=== PATIENT | male | born 1965 | race Caucasian/White ===

== ENCOUNTER 2018-12-12 16:25 | Emergency (ER) | payer MEDICARE, MEDICAID, SELFPAY ==
[2018-12-12 16:30] VITALS: BP 125/70; PULSE 79; RESP 17; TEMP 36.8; O2SAT 98; BMI 24.3
--- NOTE | 2018-12-12 16:33 | DI.RAD.S_ITS ---
PROCEDURE: XR KNEE RT 3V INDICATIONS: right knee pain,felt a pop TECHNIQUE: 3 views of the knee were acquired. COMPARISON: None. FINDINGS: Bones: No fractures or dislocations. No suspicious bony lesions. Soft tissues: No joint effusion. No suspicious soft tissue calcifications. IMPRESSION: No fracture or dislocation. Dictated by: Lee Corral M.D. on 12/12/2018 at 16:52 Approved by: Lee Corral M.D. on 12/12/2018 at 16:53
--- NOTE | 2018-12-12 16:56 | ED_ITS ---
HPI - Extremity Injury (Lower) General Chief Complaint: Extremity Injury, Lower Stated Complaint: Right leg injury Time Seen by Provider: 12/12/18 16:56 Source: patient Mode of arrival: ambulatory Limitations: no limitations History of Present Illness HPI Narrative: Patient is a 53-year-old male here for evaluation of right knee injury. Patient states that earlier today he tried to avoid stepping on his dogs and he came down on a flatfoot with his knee slightly bent. He states that he heard a ?pop? since then has had pain on the inside of his right knee. Has been ambulatory but with quite a bit of discomfort. Related Data Home Medications Medication Instructions Recorded Confirmed hydromorphone 4 mg PO DAILY 12/12/18 methocarbamol 500 mg PO TID 12/12/18 12/12/18 Allergies Allergy/AdvReac Type Severity Reaction Status Date / Time No Known Drug Allergies Allergy Unknown Verified 12/12/18 16:30 morphine [MORPHINE] AdvReac Mild I DON'T Verified 12/12/18 16:30 SLEEP pineapple [PINEAPPLE] AdvReac Mild MAKES ME Verified 12/12/18 16:30 BLEED Review of Systems Constitutional Denies headache(s) ENT Ears, Nose, Mouth, and Throat: Denies headache(s) Cardiovascular Denies chest pain Respiratory Denies cough Gastrointestinal Gastrointestinal: Denies abdominal pain Genitourinary Denies dysuria Musculoskeletal Denies myalgias, Reports arthralgias (Right knee) and Denies joint swelling Integumentary/Breasts Denies lesions and Denies rash Neurologic Denies headache(s) Hematologic/Lymphatic Denies easy bleeding and Denies easy bruising [facility] Medical History Arthritis (Acute) Social History Smoking Status: Current every day smoker Social History Smoking Status: Current every day smoker Exam Initial Vital Signs Initial Vital Signs: Vital Signs Temperature 98.3 F 12/12/18 16:30 Pulse Rate 79 12/12/18 16:30 Respiratory Rate 17 12/12/18 16:30 Blood Pressure 125/70 12/12/18 16:30 Pulse Oximetry 98 12/12/18 16:30 Const General: cooperative, comfortable, well developed, well groomed and No acute distress Orientation: alert, awake and oriented x3 Resp Effort & Inspection: normal respiratory effort Cardio Rate: regular rate Skin Lesions: no lesions Rashes: no rashes Neuro General: alert, awake and oriented x3 Cognition: normal cognition Extrem Other: Patient able to straight leg raise. He is tender to palpation along bilateral hamstrings. Is also tender to palpation along the medial joint line. ACL PCL MCL and LCL are all intact functional testing. Psych Appearance: grossly normal and well kempt Course Orders Ordered: ED Orders 12/12/18 16:33 XR knee RT 3V Stat Vital Signs - 8 hr 12/12/18 16:30 Temperature 98.3 F Pulse Rate 79 Respiratory Rate 17 Blood Pressure 125/70 Pulse Oximetry 98 MDM - Extremity Injury (Lower) Imaging Data Knee x-ray: Radiologist's impression: [address] [address] XRay Report Signed Patient: El Kebede LMR#: [id number] : 1965Acct:[id number] Age/Sex: 53 / MDate of Service: 12/12/18 Loc: ED Accession Number: [id number] Procedure: XR knee RT 3V Ordering Provider: Mario Mullins D.O. PROCEDURE: XR KNEE RT 3V INDICATIONS: right knee pain,felt a pop TECHNIQUE: 3 views of the knee were acquired. COMPARISON: None. FINDINGS: Bones: No fractures or dislocations. No suspicious bony lesions. Soft tissues: No joint effusion. No suspicious soft tissue calcifications. IMPRESSION: No fracture or dislocation. Dictated by: Lee Corral M.D. on 12/12/2018 at 16:52 Approved by: Lee Corral M.D. on 12/12/2018 at 16:53 [facility] Narrative Medical decision making narrative: Patient is neurovascular intact. X-rays negative for fracture. Patient could potentially have a medial meniscus injury or an MCL strain. He is also tender along the hamstrings. Patient has crutches at home. He also has a knee brace at home. Patient also has pain medication at home. Will hold on further workup for now. He expressed understanding and agreement with plan. Discharge Plan Departure Patient Disposition: Home Clinical Impression: Strain of right knee Qualifiers: Encounter type: initial encounter Qualified Code(s): S86.911A - Strain of unspecified muscle(s) and tendon(s) at lower leg level, right leg, initial encounter Discharge Date/Time: 12/12/18 17:10 Interventions: ED Discharge Assessment Last Done: 12/12/18 17:09 Instructions: DI for Knee Pain Activity Restrictions/Additional Instructions: You can use the crutches and a knee brace you have at home as needed for d iscomfort. Use your pain medication you have at home as needed and as directed. Contact her primary care doctor for follow-up. Return to the emergency department for any new or worsening symptoms Prescriptions: No Action methocarbamol 500 mg tablet 500 mg PO TID RF: 0 hydromorphone 4 mg tablet 4 mg PO DAILY RF: 0 Referrals: Bhumika Jiang PA-C [Primary Care Provider] -
== END 2018-12-12 17:10 | disposition home or self-care (01) ==
PROVIDERS: Emergency Provider Emergency Medicine; Family Provider Physician Assistant; PCP Physician Assistant
DX: S86.911A Strain of unspecified muscle(s) and tendon(s) at lower leg level, right leg, initial encounter (principal)
CPT/HCPCS: 73562; 99282; 99283

== ENCOUNTER 2021-11-19 14:29 | Emergency (ER) | payer MEDICARE, MEDICAID, SELFPAY ==
[2021-11-19 15:20] VITALS: BP 123/57; PULSE 76; RESP 18; TEMP 36.3; O2SAT 98; BMI 24.3
--- NOTE | 2021-11-19 15:23 | DI.RAD.S_ITS ---
PROCEDURE: XR CHEST 2V INDICATIONS: Coughing up blood concerns of pneumonia TECHNIQUE: 2 views of the chest were acquired. COMPARISON: [facility], , CHEST 2 VIEW, 09/05/2016, 13:33. FINDINGS: Surgical changes and devices: None. Lungs and pleura: Lungs are clear. No pleural effusions or pneumothorax. Bolus pulmonary emphysema noted particularly at the right lung apex with scarring. Mediastinum: Mediastinal contours are normal. Heart size is normal. Bones and chest wall: No suspicious bony abnormalities. Soft tissues appear unremarkable. IMPRESSION: Right upper lobe cavitary lesion may reflect bullous emphysema, stable from the prior. No focal infiltrate. Approved by: Ethan Swanson M.D. on 11/19/2021 at 16:14
[2021-11-19 17:09] VITALS: BP 111/68; PULSE 58; O2SAT 100
[2021-11-19 17:22] LABS: Add Manual Diff / Slide Review NO; Basophils Absolute Auto 100 /uL (0-100); Basophils Percent Auto 1.5 % (0-2); Eosinophils Absolute Auto 100 /uL (0-450); Eosinophils Percent Auto 0.9 % (2-4); Lymphocytes Absolute Auto 2200 /uL (1100-4500); Lymphocytes Percent Auto 25.3 % (25-40); Mean Corpuscular HGB Conc 34.2 % (30-36); Mean Corpuscular Hemoglobin 29.1 PG (26-34); Mean Corpuscular Volume 85.3 fL (80-100); Monocytes Absolute Auto 800 /uL (0-900); Monocytes Percent Auto 8.6 % (3-14); Neutrophils Absolute Auto 5500 /uL (1500-7000); Neutrophils Percent Auto 63.7 % (50-75); Platelet Count 227 X10^3/uL (150-400); Red Blood Cell Count 5.16 X10^6/uL (4.5-5.9); Red Cell Distribution Width 13.9 % (11.6-14.8); White Blood Cell Count 8.7 X10^3/uL (4.5-11.0)
[2021-11-19 17:30] VITALS: BP 112/66; PULSE 60; O2SAT 99
[2021-11-19 17:37] LABS: D Dimer < 200 ng/mL (<230)
[2021-11-19 17:40] LABS: Alanine Aminotransferase 21 IU/L (<50); Albumin 4.3 g/dL (3.5-5.0); Albumin Globulin Ratio 1.5 (1.0-2.8); Alkaline Phosphatase 82 U/L (38-126); Aspartate Aminotransferase 23 IU/L (17-59); BUN Creatinine Ratio 16.9 (6-22); Bilirubin Total 0.5 mg/dL (0.2-1.3); Blood Urea Nitrogen 12 mg/dL (9-20); Carbon Dioxide 28 mmol/L (22-32); Chloride 104 mmol/L (98-107); Creatine Kinase 109 U/L (55-170); Estimated Glomerular Filt Rate > 60 mL/min (>60); Globulin 2.9 g/dL (1.7-4.1); Glucose 92 mg/dL (70-100); HEMOLYSIS < 15 (0-50); Lipase 211 U/L (23-300); Potassium 4.2 mmol/L (3.4-5.1); Sodium 138 mmol/L (137-145); Total Protein 7.2 g/dL (6.3-8.2)
[2021-11-19 17:51] LABS: Troponin I < 0.012 ng/mL (0.01-0.034)
[2021-11-19 17:55] LABS: Creatine Kinase MB 1.08 ng/mL (<2.37)
[2021-11-19 17:56] LABS: Procalcitonin 0.05 ng/mL (<0.5)
[2021-11-19 18:00] VITALS: BP 116/70; PULSE 62; O2SAT 98
--- NOTE | 2021-11-19 18:29 | ED.URI ---
HPI - URI/Sore Throat General Chief Complaint: Upper Respiratory Symptoms Stated Complaint: coughing blood x 3 days Time Seen by Provider: 11/19/21 15:25 History of Present Illness HPI Narrative: 56-year-old male of pancreatitis, bacterial pneumonia and abnormal chest x-ray findings in the past consistent with a cavitary lesion that is not per kilos S presents with a chief complaint of 3 days of hemoptysis and cough. He states there have been both small amounts of bright red and occasionally dark red blood. He denies any fever or chills. He is not dizzy nor weak or lightheaded. He denies nausea or vomiting. He denies any abdominal pain. Related Data Home Medications Medication Instructions Recorded Confirmed hydromorphone 4 mg tablet 4 mg PO DAILY 12/12/18 methocarbamol 500 mg tablet 500 mg PO TID 12/12/18 12/12/18 Previous Rx's Medication Instructions Recorded doxycycline hyclate 100 mg tablet 100 mg PO BID #20 tab 11/19/21 Allergies Allergy/AdvReac Type Severity Reaction Status Date / Time No Known Drug Allergies Allergy Unknown Verified 11/19/21 15:22 morphine [MORPHINE] AdvReac Mild I DON'T Verified 11/19/21 15:22 SLEEP pineapple [PINEAPPLE] AdvReac Mild MAKES ME Verified 11/19/21 15:22 BLEED Review of Systems Review of Systems Narrative: GENERAL: Denies chills, fatigue, malaise, fever, sweats. HEENT: Denies sinus pain, ear pain, sore throat, difficulty swallowing, dizziness. RESPIRATORY: See HPI. CARDIOVASCULAR: Denies chest pain, palpitations, orthopnea, edema, GASTROINTESTINAL: Denies nausea, vomiting, abdominal pain, diarrhea, constipation, melena. : Denies dysuria, frequency, incontinence, hematuria, urinary retention. MUSCULOSKELETAL: denies weakness, joint pain, or bony pain SKIN: Denies rash, skin lesions, or other NEUROLOGIC: Denies weakness, headache, numbness, change in speech, confusion, seizures, incoordination. PSYCHIATRIC: No concerning psychosocial issues. 12 point review of systems is negative except for those stated above Patient History Medical History (Updated 11/19/21 @ 19:21 by Chad Woodson DO) Arthritis Social History Smoking Status: Current every day smoker Smoking Status: Current every day smoker alcohol intake frequency: holidays/special occasions only Substance Use Type: marijuana Exam Narrative Exam Narrative: GENERAL: [56] year old patient appears stated age. Well-developed patient, in mild distress. HEAD: Atraumatic. Normocephalic. EYES: Pupils equal round and reactive. Extraocular motions intact. No scleral icterus. No injection or drainage. ENT: Nose without bleeding, purulent drainage. Throat without erythema, tonsillar hypertrophy or exudate. Airway patent. NECK: Trachea midline. Non tender CARDIOVASCULAR: Regular rate and rhythm without murmurs, gallops, or rubs. RESPIRATORY: Clear to auscultation. Breath sounds equal bilaterally. No wheezes, rales, or rhonchi. GASTROINTESTINAL: Abdomen soft, non-tender, nondistended. EXTREMITIES: No edema or joint tenderness. BACK: Nontender without deformity or crepitance. No flank tenderness. NEURO: AOx3. SKIN: No rash or erythema of visible areas Initial Vital Signs Initial Vital Signs: Vital Signs Temperature 97.4 F L 11/19/21 15:20 Pulse Rate 76 11/19/21 15:20 Respiratory Rate 18 11/19/21 15:20 Blood Pressure 123/57 L 11/19/21 15:20 Pulse Oximetry 98 11/19/21 15:20 Course Orders Ordered: ED Orders 11/19/21 15:23 XR chest 2V Stat 11/19/21 15:26 EKG-12 Lead Stat 11/19/21 17:05 Complete Blood Count AUTO DIFF Stat Comprehensive Metabolic Panel Stat D Dimer Stat Lipase Stat Procalcitonin Stat Troponin & CK Cardiac Panel Stat 11/19/21 18:41 CT chest w con Stat Discontinued Medications Albuterol (Albuterol Hfa Prepack) 1 box MISC SEEINSTR ONE Stop: 11/19/21 19:20 Vital Signs Vital signs: Vital Signs - 8 hr 11/19/21 15:20 Temperature 97.4 F L Pulse Rate 76 Respiratory Rate 18 Blood Pressure 123/57 L Pulse Oximetry 98 MDM - URI/Sore Throat Lab Data Result diagrams: 11/19/21 17:05 11/19/21 17:05 Labs: Lab Results 11/19/21 11/19/21 11/19/21 Range/Units 17:05 17:05 17:05 WBC 8.7 (4.5-11.0) X10^3/uL RBC 5.16 (4.5-5.9) X10^6/uL Hgb 15.0 (13.5-17.5) g/dL Hct 44.0 (41-53) % MCV 85.3 (80-100) fL MCH 29.1 (26-34) PG MCHC 34.2 (30-36) % RDW 13.9 (11.6-14.8) % Plt Count 227 (150-400) X10^3/uL Neut % (Auto) 63.7 (50-75) % Lymph % (Auto) 25.3 (25-40) % [place] % (Auto) 8.6 (3-14) % Eos % (Auto) 0.9 L (2-4) % Baso % (Auto) 1.5 (0-2) % Neut # (Auto) 5500 (5627-3902) /uL Lymph # (Auto) 2200 (9749-2256) /uL [place] # (Auto) 800 (0-900) /uL Eos # (Auto) 100 (0-450) /uL Baso # (Auto) 100 (0-100) /uL D-Dimer < 200 (<230) ng/mL Sodium 138 (137-145) mmol/L Potassium 4.2 (3.4-5.1) mmol/L Chloride 104 (98-107) mmol/L Carbon Dioxide 28 (22-32) mmol/L BUN 12 (9-20) mg/dL Creatinine 0.71 (0.66-1.25) mg/dL Estimated GFR > 60 (>60) mL/min BUN/Creatinine Ratio 16.9 (6-22) Glucose 92 (70-100) mg/dL Calcium 9.0 (8.4-10.2) mg/dL Total Bilirubin 0.5 (0.2-1.3) mg/dL AST 23 (17-59) IU/L ALT 21 (<50) IU/L Alkaline Phosphatase 82 (38-126) U/L Total Creatine Kinase 109 (55-170) U/L CK-MB (CK-2) 1.08 (<2.37) ng/mL CK-MB (CK-2) Rel Index 1.0 L (1.5-5.0) % Troponin I < 0.012 (0.01-0.034) ng/mL Total Protein 7.2 (6.3-8.2) g/dL Albumin 4.3 (3.5-5.0) g/dL Globulin 2.9 (1.7-4.1) g/dL Albumin/Globulin Ratio 1.5 (1.0-2.8) Lipase 211 (23-300) U/L Procalcitonin 0.05 (<0.5) ng/mL Imaging Data Chest x-ray: Radiologist's Impression: Launch?Image [address] [address] XRay Report Signed Patient: El Kebede Jr MR#: [id number] : 1965 Acct:[id number] Age/Sex: 56 / M Date of Service: 11/19/21 Loc: ED Accession Number: [id number] ?? Procedure: XR chest 2V Ordering Provider: Lisa Lora D.O. PROCEDURE:? XR CHEST 2V ? INDICATIONS:? Coughing up blood concerns of pneumonia ? TECHNIQUE:? 2 views of the chest were acquired.? ? COMPARISON:? [facility], , CHEST 2 VIEW, 09/05/2016, 13:33. ? FINDINGS:? ? Surgical changes and devices:? None.? ? Lungs and pleura:? Lungs are clear.? No pleural effusions or pneumothorax.? Bolus pulmonary emphysema noted particularly at the right lung apex with scarring. ? Mediastinum:? Mediastinal contours are normal.? Heart size is normal.? ? Bones and chest wall:? No suspicious bony abnormalities.? Soft tissues appear unremarkable.? ? IMPRESSION:? ? Right upper lobe cavitary lesion may reflect bullous emphysema, stable from the prior.? No focal infiltrate. ? ? ? Approved by: Ethan Swanson M.D. on 11/19/2021 at 16:14? CT scan - chest: Radiologist's Impression: [address] [address] [address] Scan Report Signed Patient: El Kebede Jr MR#: [id number] : 1965 Acct:[id number] Age/Sex: 56 / M Date of Service: 11/19/21 Loc: ED Accession Number: [id number] ?? Procedure: CT chest w con Ordering Provider: Chad Woodson D.O. PROCEDURE:? CT CHEST W CON ? INDICATIONS:? hemoptysis ? TECHNIQUE:? After the administration of intravenous contrast, 5 mm thick sections acquired from the pulmonary apices to the posterior costophrenic angles.? 1 mm axial lung, 5 mm thick coronal and sagittal reformats and 7 mm axial MIP were acquired.? For radiation dose reduction, the following was used:? automated exposure control, adjustment of mA and/or kV according to patient size.? ? COMPARISON:? [facility], CT, ANGIOGRAPHY CHEST AND ABDOMEN, 09/05/2016, 14:22. ? FINDINGS:? Image quality:? Excellent.? ? Lungs and pleura:? Advanced biapical centrilobular emphysema, as before.? No significant change in large left apical mass, previously measuring 2.6 x 1.9 cm in currently measuring 2.7 x 1.9 cm.? Stable or slightly smaller right a pickle mass on previous image 22/6 it measured 3.0 x 1.6 cm.? On current image 80/3 it measures 2.7 x 1.7 cm.? On previous image 21/6 it measured 3.1 x 2.3 cm.? On current image 78/3 it measures 3.1 x 1.9 cm.? These are consistent with chronic granulomatous disease.? Numerous small right upper lobe pulmonary nodules are also not significantly changed, allowing for differences in technique.? No acute air space opacities.? No pleural effusions or pneumothorax.? Bilateral upper lung field bronchiectasis and bronchial wall thickening, as before.? No new or increasing pulmonary nodules.? No acute infiltrates.? No evidence of pulmonary parenchymal hemorrhage. ? Mediastinum:? Heart size is normal.? No pericardial effusion.? No mediastinal or hilar adenopathy by size criteria.? Thoracic aorta and central pulmonary arteries are normal in size.? Esophagus is normal in caliber.? No hiatal hernia.? ? Bones and chest wall:? No suspicious bony lesions.? No vertebral body compression fractures.? No axillary or supraclavicular adenopathy by size criteria.? Thyroid gland is unremarkable as imaged .? ? Abdomen:? Numerous low-density liver lesions are stable, and presumed to represent benign cysts versus hemangiomata. ? IMPRESSION:? ? 1. Biapical large masses are unchanged in size or slightly smaller, consistent with chronic granulomatous disease. ? 2. Severe biapical emphysematous change. ? 3. Multiple other small right upper lobe pulmonary nodules are stable. ? 4. Bilateral bronchiectasis and bronchial wall thickening. ? 5. No consolidation to indicate evidence of acute parenchymal hemorrhage.? ? ? Dictated by: Efraín Salazar M.D. on 11/19/2021 at 18:55 ? ? Approved by: Efraín Salazar M.D. on 11/19/2021 at 19:05? MDM Narrative Medical decision making narrative: 56-year-old male with reassuring physical exam, labs and imaging. He reports hacking cough, occasionally productive of sputum and feels similar to prior bouts of pneumonia. He does not take any blood thinners. Multiple diagnoses considered including massive hemoptysis cough thought unlikely given history and physical. Pulmonary embolism thought unlikely given negative D-dimer. No obvious lung masses or acute change to suggest airway infiltration or even focal consolidation. Given his history of smoking, ongoing cough with productive sputum and now hemoptysis will treat with antibiotics for atypical pneumonia, will be given return precautions Discharge Plan Departure Patient Disposition: Home Clinical Impression: Atypical pneumonia Instructions: DI for Atypical Pneumonia Activity Restrictions/Additional Instructions: *You have been diagnosed with [mild hemoptysis likely due to atypical pneumonia. As we discussed your history and physical exam are reassuring as is the blood work and imaging. There is no evidence of a large pneumonia, blood clot, lung cancer or other serious diagnosis that would require a specific intervention *What to do: *Please continue to take your regular medications as directed. [x ] New medication prescriptions sent to your pharmacy: [[facility] ] [ ] New medication written as a paper prescription [ ] No new medications given *Please follow up with your primary care provider in 2-3 days, call for an appointment. Let them know you were seen in the Emergency Department and that we ask that you be seen in follow up. We will electronically transmit a record of today's note if your PCP is in our system *If you do not have a primary care provider please contact the [facility] Resource line at [phone]. They will ask some questions about your medical history and help get you set up with a doctor in the community. *Return to Emergency Department if you should have any new, worsening or concerning symptoms, such as [fever greater than 101 F, shaking chills, worsening pain, persistent vomiting or other bothersome symptoms] Prescriptions: New doxycycline hyclate 100 mg tablet 100 mg PO BID Qty: 20 0RF No Action methocarbamol 500 mg tablet 500 mg PO TID 0RF hydromorphone 4 mg tablet 4 mg PO DAILY 0RF Referrals: Bhumika Jiang PA-C [Primary Care Provider] -
--- NOTE | 2021-11-19 18:41 | DI.CT.S_ITS ---
PROCEDURE: CT CHEST W CON INDICATIONS: hemoptysis TECHNIQUE: After the administration of intravenous contrast, 5 mm thick sections acquired from the pulmonary apices to the posterior costophrenic angles. 1 mm axial lung, 5 mm thick coronal and sagittal reformats and 7 mm axial MIP were acquired. For radiation dose reduction, the following was used: automated exposure control, adjustment of mA and/or kV according to patient size. COMPARISON: [facility], CT, ANGIOGRAPHY CHEST AND ABDOMEN, 09/05/2016, 14:22. FINDINGS: Image quality: Excellent. Lungs and pleura: Advanced biapical centrilobular emphysema, as before. No significant change in large left apical mass, previously measuring 2.6 x 1.9 cm in currently measuring 2.7 x 1.9 cm. Stable or slightly smaller right a pickle mass on previous image 22/6 it measured 3.0 x 1.6 cm. On current image 80/3 it measures 2.7 x 1.7 cm. On previous image 21/6 it measured 3.1 x 2.3 cm. On current image 78/3 it measures 3.1 x 1.9 cm. These are consistent with chronic granulomatous disease. Numerous small right upper lobe pulmonary nodules are also not significantly changed, allowing for differences in technique. No acute air space opacities. No pleural effusions or pneumothorax. Bilateral upper lung field bronchiectasis and bronchial wall thickening, as before. No new or increasing pulmonary nodules. No acute infiltrates. No evidence of pulmonary parenchymal hemorrhage. Mediastinum: Heart size is normal. No pericardial effusion. No mediastinal or hilar adenopathy by size criteria. Thoracic aorta and central pulmonary arteries are normal in size. Esophagus is normal in caliber. No hiatal hernia. Bones and chest wall: No suspicious bony lesions. No vertebral body compression fractures. No axillary or supraclavicular adenopathy by size criteria. Thyroid gland is unremarkable as imaged . Abdomen: Numerous low-density liver lesions are stable, and presumed to represent benign cysts versus hemangiomata. IMPRESSION: 1. Biapical large masses are unchanged in size or slightly smaller, consistent with chronic granulomatous disease. 2. Severe biapical emphysematous change. 3. Multiple other small right upper lobe pulmonary nodules are stable. 4. Bilateral bronchiectasis and bronchial wall thickening. 5. No consolidation to indicate evidence of acute parenchymal hemorrhage. Dictated by: Efraín Salazar M.D. on 11/19/2021 at 18:55 Approved by: Efraín Salazar M.D. on 11/19/2021 at 19:05
[2021-11-19] MEDS: ALBUTEROL HFA PREPACK 1 BOX MISC (19:23)
== END 2021-11-19 19:29 | disposition home or self-care (01) ==
PROVIDERS: Emergency Medicine; Emergency Provider Emergency Medicine; Family Provider Physician Assistant; PCP Physician Assistant
DX: J18.9 Pneumonia, unspecified organism (principal); R07.89 Other chest pain
CPT/HCPCS: 36415; 71046; 71260; 80053; 82550; 82553; 83690; 84145; 84484; 85025; 85379; 93005; 93010; 99283

== ENCOUNTER 2022-05-21 11:23 | Emergency (ER) | payer MEDICARE, MEDICAID, SELFPAY ==
[2022-05-21 11:31] VITALS: BP 113/63; PULSE 76; RESP 20; TEMP 36.8; O2SAT 99; BMI 22.9
--- NOTE | 2022-05-21 11:31 | DI.RAD.S_ITS ---
PROCEDURE: XR CHEST 2V INDICATIONS: cough, fever, chills, sputum TECHNIQUE: 2 views of the chest were acquired. COMPARISON: [facility], CT, CT CHEST W CON, 11/19/2021, 18:33. [facility], CR, XR CHEST 2V, 11/19/2021, 15:21. FINDINGS: Surgical changes and devices: None. Lungs and pleura: There is hyperinflation and chronic interstitial changes without focal infiltrate, pleural effusion or pneumothorax. Biapical emphysematous bulla noted, stable Mediastinum: Mediastinal contours are normal. Heart size is normal. Bones and chest wall: No suspicious bony abnormalities. Soft tissues appear unremarkable. IMPRESSION: Stable hyperinflation and chronic interstitial change. Biapical pulmonary nodules better depicted on prior CT Approved by: Ethan Swanson M.D. on 05/21/2022 at 11:48
[2022-05-21 12:21] LABS: Influenza A - CEPHEID Flu A POSITIVE (NEGATIVE); Influenza B - CEPHEID Flu B NEGATIVE (NEGATIVE); Respiratory Syncytial Virus Negative (Negative)
[2022-05-21 12:23] LABS: COVID-19 CEPHEID 4-PLEX PCR Negative (Negative)
--- NOTE | 2022-05-21 12:28 | ED_ITS ---
HPI - URI/Sore Throat General Chief Complaint: Upper Respiratory Symptoms Stated Complaint: SOB, lungs full of fluids, not sleeping(3 days) Time Seen by Provider: 05/21/22 11:26 History of Present Illness HPI Narrative: 56-year-old male daily smoker with history of prior episodes of pneumonia presents with 1 week of cough nausea and loose stools. He is had subjective fever and body aches as well. He states that he has been exposed to somebody with known influenza A. He denies any chest pain or abdominal pain. He overall feels generally unwell. His family, those with influenza, have had a dry cough, however his has been producing sputum over the course of the week. He does c ontinue to smoke though he is trying to quit Related Data Home Medications Medication Instructions Recorded Confirmed hydromorphone 4 mg tablet 4 mg PO DAILY 12/12/18 methocarbamol 500 mg tablet 500 mg PO TID 12/12/18 12/12/18 Previous Rx's Medication Instructions Recorded doxycycline hyclate 100 mg tablet 100 mg PO BID #20 tabs 11/19/21 benzonatate 200 mg capsule 200 mg PO BID PRN cough #20 caps 05/21/22 doxycycline hyclate 100 mg tablet 100 mg PO BID #20 tabs 05/21/22 Allergies Allergy/AdvReac Type Severity Reaction Status Date / Time No Known Drug Allergies Allergy Unknown Verified 11/19/21 15:22 morphine [MORPHINE] AdvReac Mild I DON'T Verified 11/19/21 15:22 SLEEP pineapple [PINEAPPLE] AdvReac Mild MAKES ME Verified 11/19/21 15:22 BLEED Review of Systems Review of Systems Narrative: GENERAL: See HPI. HEENT: See HPI RESPIRATORY: See HPI CARDIOVASCULAR: Denies chest pain, palpitations, orthopnea, edema, GASTROINTESTINAL: See HPI : Denies dysuria, frequency, incontinence, hematuria, urinary retention. MUSCULOSKELETAL: denies weakness, joint pain, or bony pain SKIN: Denies rash, skin lesions, or other NEUROLOGIC: Denies weakness, headache, numbness, change in speech, confusion, seizures, incoordination. PSYCHIATRIC: No concerning psychosocial issues. 12 point review of systems is negative except for those stated above Patient History Medical History (Updated 05/21/22 @ 13:03 by Chad Woodson DO) Arthritis Social History Smoking Status: Current every day smoker Smoking Status: Current every day smoker alcohol intake frequency: holidays/special occasions only Substance Use Type: marijuana Exam Narrative Exam Narrative: GENERAL: [56] year old patient appears stated age. Well-developed patient, in mild distress. HEAD: Atraumatic. Normocephalic. EYES: Pupils equal round and reactive. Extraocular motions intact. No scleral icterus. No injection or drainage. ENT: Nose without bleeding, purulent drainage. Throat without erythema, tonsil lar hypertrophy or exudate. Airway patent. NECK: Trachea midline. Non tender CARDIOVASCULAR: Regular rate and rhythm without murmurs, gallops, or rubs. RESPIRATORY: Mild inspiratory wheeze with harsh expiratory cough, no rales or rhonchi noted GASTROINTESTINAL: Abdomen soft, non-tender, nondistended. EXTREMITIES: No edema or joint tenderness. BACK: Nontender without deformity or crepitance. No flank tenderness. NEURO: AOx3. SKIN: No rash or erythema of visible areas Initial Vital Signs Initial Vital Signs: Vital Signs Temperature 98.2 F 05/21/22 11:31 Pulse Rate 76 05/21/22 11:31 Respiratory Rate 20 05/21/22 11:31 Blood Pressure 113/63 05/21/22 11:31 Pulse Oximetry 99 05/21/22 11:31 Oxygen Delivery Method 05/21/22 11:31 Course Orders Ordered: ED Orders 05/21/22 11:31 XR chest 2V Stat 05/21/22 11:38 Covid-19 + FLU A/B + RSV - PCR Stat Vital Signs Vital signs: Vital Signs - 8 hr 05/21/22 11:31 05/21/22 12:44 Temperature 98.2 F Pulse Rate 76 72 Respiratory Rate 20 17 Blood Pressure 113/63 101/55 L Pulse Oximetry 99 95 Oxygen Delivery Method Room Air Room Air MDM - URI/Sore Throat Lab Data Labs: Lab Results 05/21/22 Range/Units 11:38 SARS-CoV-2 (PCR) Negative (Negative) Influenza A (RT-PCR) Flu a positive H (NEGATIVE) Influenza B (RT-PCR) Flu b negative (NEGATIVE) RSV (PCR) Negative (Negative) MDM Narrative Medical decision making narrative: Patient with reassuring history and physical exam with no significant work of breathing, no hypoxemia, tachypnea. Chest x-ray shows no focal infiltrate, however given his sputum production and history of smoking I will cover him for atypical pneumonia in addition to reassurance for his flu diagnosis. Given the symptoms duration for 7 days we did not discuss Tamiflu as it is not an option. He is given extensive return precautions and questions answered to his apparent satisfaction Discharge Plan Departure Patient Disposition: Home Clinical Impression: Influenza, Atypical pneumonia Instructions: DI for Influenza -- Adult Activity Restrictions/Additional Instructions: *You have been diagnosed with [influenza A and possibly atypical pneumonia] *What to do: *Please continue to take your regular medications as directed. [ x] New medication prescriptions sent to your pharmacy: [[facility] ] [ ] New medication written as a paper prescription [ ] No new medications given *Please follow up with your primary care provider in 2-3 days, call for an appointment. Let them know you were seen in the Emergency Department and that we ask that you be seen in follow up. We will electronically transmit a record of today's note if your PCP is in our system *If you do not have a primary care provider please contact the [facility] Resource line at [phone]. They will ask some questions about your medical history and help get you set up with a doctor in the community. *Return to Emergency Department if you should have any new, worsening or concerning symptoms Prescriptions: New benzonatate 200 mg capsule 200 mg PO BID PRN (Reason: cough) Qty: 20 0RF doxycycline hyclate 100 mg tablet 100 mg PO BID Qty: 20 0RF No Action methocarbamol 500 mg tablet 500 mg PO TID hydromorphone 4 mg tablet 4 mg PO DAILY doxycycline hyclate 100 mg tablet 100 mg PO BID Qty: 20 0RF Referrals: Bhumika Jiang PA-C [Primary Care Provider] -
[2022-05-21 12:44] VITALS: BP 101/55; PULSE 72; RESP 17; O2SAT 95
[2022-05-21 12:45] VITALS: PULSE 72; RESP 11; O2SAT 95
--- NOTE | 2022-05-21 12:46 | PC.NURSE ---
Patient reports low appetite and he hasn't been eating, denies nausea/vomiting.
[2022-05-21 13:00] VITALS: PULSE 73; RESP 13; O2SAT 95
== END 2022-05-21 13:25 | disposition home or self-care (01) ==
PROVIDERS: Emergency Provider Emergency Medicine; Family Provider Physician Assistant; PCP Physician Assistant
DX: J10.1 Influenza due to other identified influenza virus with other respiratory manifestations (principal); J18.9 Pneumonia, unspecified organism; Z20.822 Contact with and (suspected) exposure to COVID-19
CPT/HCPCS: 0241U; 71046; 99283